=== PATIENT | female | born 1940 | race Caucasian/White ===

== ENCOUNTER 2020-04-03 17:22 | Emergency (ER) | payer MEDICARE, OTHER ==
[~2020-04-03] VITALS: Ht 162.6 cm; Wt 75.0 kg
[2020-04-03] MEDS ORDERED: iohexol 350MG/ML 100ml bottle IV ONE (17:37)
--- NOTE | 2020-04-03 17:37 | NUR ---
PT WENT TO CT SCAN WITH DAUGHTER TOMMY PEARSON .
[2020-04-03 17:58] LABS: BASOPHILS # (AUTO) 0.1 X10'3 (0-0.2); BASOPHILS % (AUTO) 0.8 % (0-1); EOSINOPHILS # (AUTO) 0.2 X10'3 (0-0.9); EOSINOPHILS % (AUTO) 2.3 % (0-6); HEMATOCRIT 42.8 % (35.0-45.0); HEMOGLOBIN 14.3 g/dl (12.0-16.0); LYMPHOCYTES # (AUTO) 3.7 X10'3 (1.1-4.8); LYMPHOCYTES % (AUTO) 35.7 % (21-51); MEAN CORPUSCULAR HEMOGLOBIN 32.2 PG (27.0-31.0); MEAN CORPUSCULAR HGB CONC 33.3 g/dL (33.0-36.5); MEAN CORPUSCULAR VOLUME 96.8 FL (78-98); MEAN PLATELET VOLUME 9.9 FL (7.4-10.4); MONOCYTES # (AUTO) 0.9 X10'3 (0-0.9); MONOCYTES % (AUTO) 8.4 % (2-12); NEUTROPHILS # (AUTO) 5.5 X10'3 (1.8-7.7); NEUTROPHILS % (AUTO) 52.8 % (42-75); PLATELET COUNT 222 X10'3 (140-440); RED BLOOD COUNT 4.42 X10'6 (4.20-5.60); RED CELL DISTRIBUTION WIDTH 13.4 % (11.5-14.5); WHITE BLOOD COUNT 10.3 X10'3 (4.5-11.0)
[2020-04-03 18:02] LABS: PARTIAL THROMBOPLASTIN TIME 24 SECONDS (22-32)
[2020-04-03 18:04] LABS: ALANINE AMINOTRANSFERASE 28 U/L (12-78); ALBUMIN 3.9 G/DL (3.4-5.0); ALBUMIN/GLOBULIN RATIO 1.1 (1.1-1.5); ALKALINE PHOSPHATASE 108 IU/L (46-116); ANION GAP 11 (8-16); ASPARTATE AMINO TRANSFERASE 15 U/L (10-37); BILIRUBIN,TOTAL 0.4 MG/DL (0.1-1.0); BLOOD UREA NITROGEN 22 MG/DL (7-18); BUN/CREATININE RATIO 31.9 (6.6-38.0); CALCIUM 9.7 MG/DL (8.5-10.1); CHLORIDE 105 MMOL/L (99-107); CREATININE 0.69 MG/DL (0.40-0.90); GLUCOSE 91 MG/DL (70-104); POTASSIUM 3.9 MMOL/L (3.5-5.1); SODIUM 140 MMOL/L (135-145); TOTAL CARBON DIOXIDE 24.1 MMOL/L (24-32); TOTAL PROTEIN 7.6 G/DL (6.4-8.2); eGFR 82 ML/MIN
[2020-04-03] MEDS ORDERED: normal saline 1000ml 1,000 ML IV ONE (18:10)
[2020-04-03 18:34] LABS: CLARITY,URINE CLEAR (Clear); COLOR,URINE YELLOW (Yellow); GLUCOSE, URINE NEGATIVE (Neg); KETONES,URINE NEGATIVE (Neg); LEUKOCYTE ESTERASE ,URINE SMALL (Neg); NITRITES, URINE NEGATIVE (Neg); OCCULT BLOOD,URINE NEGATIVE (Neg); PH,URINE 7.5 (4.8-8.0); PROTEIN,URINE NEGATIVE (Neg); UROBILINOGEN,URINE 0.2 E.U/dL (0.2-1.0)
[2020-04-03 18:40] LABS: UA COLLECTION TYPE CLN CATCH MIDSTREAM
[2020-04-03 18:41] LABS: BACTERIA,URINE 1+ /HPF (Neg); RBC,URINE NONE SEEN /HPF (0-2); SQUAMOUS EPITHELIAL CELL,UR MODERATE /LPF (FEW)
[2020-04-03 20:08] VITALS: BP 189/77
== END 2020-04-03 20:11 | disposition home or self-care (01) ==
LOC: ER 17:23
DX: G43.909 Migraine, unspecified, not intractable, without status migrainosus (principal); E03.9 Hypothyroidism, unspecified; Z88.2 Allergy status to sulfonamides
CPT/HCPCS: 36415; 70450; 70496; 70498; 71045; 80053; 81001; 85025; 85610; 85730; 86885; 86900; 86901; 87088; 93005; 96360; 99285; J7030; Q9967

== ENCOUNTER 2021-04-11 10:45 | Emergency (ER) | payer MEDICARE, OTHER ==
[~2021-04-11] VITALS: Ht 165.1 cm; Wt 72.7 kg
[~2021-04-11 10:45] MED LIST: ONDA4TAB12 PO
[2021-04-11] MEDS ORDERED: nitroGLYCERIN 0.4mg SUBLingual tab SL PRN (10:55)
[2021-04-11] MEDS ORDERED: aspirin 81mg tab.chew PO ONE (10:55)
[2021-04-11 11:26] LABS: BASOPHILS % (AUTO) 0.4 % (0-1); EOSINOPHILS # (AUTO) 0.1 X10'3 (0-0.9); EOSINOPHILS % (AUTO) 1.1 % (0-6); HEMATOCRIT 40.6 % (35.0-45.0); HEMOGLOBIN 13.9 g/dl (12.0-16.0); LYMPHOCYTES # (AUTO) 2.2 X10'3 (1.1-4.8); MEAN CORPUSCULAR HEMOGLOBIN 32.6 PG (27.0-31.0); MEAN CORPUSCULAR HGB CONC 34.2 g/dL (33.0-36.5); MEAN CORPUSCULAR VOLUME 95.4 FL (78-98); MEAN PLATELET VOLUME 8.9 FL (7.4-10.4); MONOCYTES # (AUTO) 0.6 X10'3 (0-0.9); MONOCYTES % (AUTO) 8.1 % (2-12); NEUTROPHILS # (AUTO) 4.9 X10'3 (1.8-7.7); NEUTROPHILS % (AUTO) 62.4 % (42-75); PLATELET COUNT 269 X10'3 (140-440); RED BLOOD COUNT 4.26 X10'6 (4.20-5.60); RED CELL DISTRIBUTION WIDTH 12.7 % (11.5-14.5); WHITE BLOOD COUNT 7.9 X10'3 (4.5-11.0)
[2021-04-11 11:43] LABS: ALANINE AMINOTRANSFERASE 25 U/L (12-78); ALBUMIN 3.3 G/DL (3.4-5.0); ALBUMIN/GLOBULIN RATIO 0.9 (1.1-1.5); ALKALINE PHOSPHATASE 81 IU/L (46-116); ANION GAP 13 (8-16); ASPARTATE AMINO TRANSFERASE 17 U/L (10-37); BILIRUBIN,TOTAL 0.6 MG/DL (0.1-1.0); BLOOD UREA NITROGEN 12 MG/DL (7-18); CALCIUM 8.7 MG/DL (8.5-10.1); CHLORIDE 105 MMOL/L (99-107); CREATININE 0.75 MG/DL (0.40-0.90); GLUCOSE 112 MG/DL (70-104); POTASSIUM 3.3 MMOL/L (3.5-5.1); SODIUM 141 MMOL/L (135-145); TOTAL CARBON DIOXIDE 23.5 MMOL/L (24-32); TOTAL PROTEIN 6.9 G/DL (6.4-8.2); eGFR 75 ML/MIN
[2021-04-11] MEDS ORDERED: ondansetron/PF 4mg/2ml inj IV ONE (12:50)
[2021-04-11 15:02] VITALS: BP 117/74
== END 2021-04-11 15:12 | disposition home or self-care (01) ==
LOC: ER 10:45
DX: R07.89 Other chest pain (principal); R11.2 Nausea with vomiting, unspecified; I48.91 Unspecified atrial fibrillation; E03.9 Hypothyroidism, unspecified; Z90.89 Acquired absence of other organs; Z88.2 Allergy status to sulfonamides; Z79.899 Other long term (current) drug therapy
CPT/HCPCS: 36415; 71045; 80053; 83880; 84484; 85025; 93005; 96374; 99285; J2405

== ENCOUNTER 2021-10-30 01:12 | Emergency (ER) | payer MEDICARE, OTHER ==
[~2021-10-30] VITALS: Ht 165.1 cm; Wt 75.5 kg
[2021-10-30 01:25] VITALS: BP 165/74
[2021-10-30] MEDS ORDERED: benzonatate 100mg capsule PO ONE ×2 (01:40→02:45)
[2021-10-30] MEDS ORDERED: BENZ-38 PO (02:50)
[2021-10-31] MEDS ORDERED: DEXA6TAB6 PO (12:18)
[2021-10-31] MEDS ORDERED: ALBU6.7H14 INH (12:18)
[2021-10-31] MEDS ORDERED: BUDE180A INH (12:18)
[2021-10-31] MEDS ORDERED: XYL25J TOP (12:18)
== END 2021-10-30 03:11 | disposition home or self-care (01) ==
LOC: ER 01:13
DX: J02.9 Acute pharyngitis, unspecified (principal); E03.9 Hypothyroidism, unspecified; Z88.0 Allergy status to penicillin; Z88.2 Allergy status to sulfonamides; Z98.890 Other specified postprocedural states
CPT/HCPCS: 87081; 87880; 99283

== ENCOUNTER 2021-10-31 09:20 | Emergency (ER) | payer MEDICARE, OTHER ==
[~2021-10-31] VITALS: Ht 162.6 cm; Wt 72.7 kg
[~2021-10-31 09:20] MED LIST changes: +BENZ-38 PO
[2021-10-31] MEDS ORDERED: dexamethasone sod phosphate 10mg/ml inj IV STA (09:42)
[2021-10-31] MEDS ORDERED: normal saline 1000ML IV soln IVB ONE (09:45)
[2021-10-31 10:03] LABS: BASOPHILS % (AUTO) 0.3 % (0-1); EOSINOPHILS % (AUTO) 0.1 % (0-6); HEMATOCRIT 45.6 % (35.0-45.0); HEMOGLOBIN 15.3 g/dl (12.0-16.0); LYMPHOCYTES # (AUTO) 1.9 X10'3 (1.1-4.8); LYMPHOCYTES % (AUTO) 18.5 % (21-51); MEAN CORPUSCULAR HEMOGLOBIN 32.5 PG (27.0-31.0); MEAN CORPUSCULAR HGB CONC 33.5 g/dL (33.0-36.5); MEAN CORPUSCULAR VOLUME 97.1 FL (78-98); MEAN PLATELET VOLUME 9.4 FL (7.4-10.4); MONOCYTES % (AUTO) 9.6 % (2-12); NEUTROPHILS # (AUTO) 7.2 X10'3 (1.8-7.7); NEUTROPHILS % (AUTO) 71.5 % (42-75); PLATELET COUNT 178 X10'3 (140-440); RED BLOOD COUNT 4.69 X10'6 (4.20-5.60); RED CELL DISTRIBUTION WIDTH 13.9 % (11.5-14.5); WHITE BLOOD COUNT 10.1 X10'3 (4.5-11.0)
[2021-10-31 10:18] LABS: ALANINE AMINOTRANSFERASE 26 U/L (12-78); ALBUMIN 3.4 G/DL (3.4-5.0); ALBUMIN/GLOBULIN RATIO 0.8 (1.1-1.5); ALKALINE PHOSPHATASE 93 IU/L (46-116); ANION GAP 12 (8-16); ASPARTATE AMINO TRANSFERASE 21 U/L (10-37); BILIRUBIN,TOTAL 0.5 MG/DL (0.1-1.0); BLOOD UREA NITROGEN 16 MG/DL (7-18); BUN/CREATININE RATIO 17.8 (6.6-38.0); CALCIUM 8.9 MG/DL (8.5-10.1); CHLORIDE 102 MMOL/L (99-107); GLUCOSE 168 MG/DL (70-104); POTASSIUM 3.3 MMOL/L (3.5-5.1); SODIUM 138 MMOL/L (135-145); TOTAL CARBON DIOXIDE 24.1 MMOL/L (24-32); TOTAL PROTEIN 7.5 G/DL (6.4-8.2); eGFR 60 ML/MIN
[2021-10-31] MEDS ORDERED: BEBTELOVIMAB 175 MG/2 ML VIAL IV ONE (10:40)
[2021-10-31] MEDS ORDERED: BUDE180A INH (12:18)
[2021-10-31] MEDS ORDERED: ALBU6.7H14 INH (12:18)
[2021-10-31] MEDS ORDERED: DEXA6TAB6 PO (12:18)
[2021-10-31] MEDS ORDERED: XYL25J TOP (12:18)
[2021-10-31 12:23] VITALS: BP 127/68
== END 2021-10-31 12:25 | disposition home or self-care (01) ==
LOC: ER 09:21
DX: U07.1 COVID-19 (principal); M54.9 Dorsalgia, unspecified; E03.9 Hypothyroidism, unspecified; I51.9 Heart disease, unspecified; Z88.0 Allergy status to penicillin; Z88.2 Allergy status to sulfonamides; Z79.899 Other long term (current) drug therapy; Z79.1 Long term (current) use of non-steroidal anti-inflammatories (NSAID)
CPT/HCPCS: 36415; 71045; 80053; 85025; 96374; 99284; J1100; J7030; M0222; Q0222

== ENCOUNTER 2021-11-28 08:36 | Emergency (ER) | payer MEDICARE, OTHER ==
[~2021-11-28] VITALS: Ht 162.6 cm; Wt 72.7 kg
[~2021-11-28 08:36] MED LIST changes: +ALBU6.7H14 INH; +BUDE180A INH; +DEXA6TAB6 PO; +XYL25J TOP
[2021-11-28 09:06] LABS: BASOPHILS % (AUTO) 0.5 % (0-1); EOSINOPHILS # (AUTO) 0.3 X10'3 (0-0.9); EOSINOPHILS % (AUTO) 3.2 % (0-6); HEMATOCRIT 42.1 % (35.0-45.0); HEMOGLOBIN 14.1 g/dl (12.0-16.0); LYMPHOCYTES # (AUTO) 2.3 X10'3 (1.1-4.8); LYMPHOCYTES % (AUTO) 28.3 % (21-51); MEAN CORPUSCULAR HEMOGLOBIN 32.4 PG (27.0-31.0); MEAN CORPUSCULAR HGB CONC 33.5 g/dL (33.0-36.5); MEAN CORPUSCULAR VOLUME 96.8 FL (78-98); MEAN PLATELET VOLUME 8.7 FL (7.4-10.4); MONOCYTES # (AUTO) 0.8 X10'3 (0-0.9); MONOCYTES % (AUTO) 9.9 % (2-12); NEUTROPHILS # (AUTO) 4.6 X10'3 (1.8-7.7); NEUTROPHILS % (AUTO) 58.1 % (42-75); PLATELET COUNT 245 X10'3 (140-440); RED BLOOD COUNT 4.35 X10'6 (4.20-5.60); RED CELL DISTRIBUTION WIDTH 13.1 % (11.5-14.5)
[2021-11-28 09:14] LABS: ALANINE AMINOTRANSFERASE 22 U/L (12-78); ALBUMIN 3.5 G/DL (3.4-5.0); ALKALINE PHOSPHATASE 113 IU/L (46-116); ANION GAP 10 (8-16); ASPARTATE AMINO TRANSFERASE 19 U/L (10-37); BILIRUBIN,TOTAL 0.6 MG/DL (0.1-1.0); BLOOD UREA NITROGEN 11 MG/DL (7-18); BUN/CREATININE RATIO 15.7 (6.6-38.0); CHLORIDE 106 MMOL/L (99-107); GLUCOSE 114 MG/DL (70-104); SODIUM 141 MMOL/L (135-145); TOTAL CARBON DIOXIDE 24.7 MMOL/L (24-32); TOTAL PROTEIN 6.9 G/DL (6.4-8.2); eGFR 81 ML/MIN
[2021-11-28] MEDS ORDERED: ondansetron/PF 4mg/2ml inj IV ONE (09:25)
[2021-11-28] MEDS ORDERED: LORazepam 2 mg/ml vial IV ONE (09:35)
[2021-11-28] MEDS ORDERED: bisoprolol 5mg tablet PO ONE (10:30)
[2021-11-28] MEDS ORDERED: atenolol 25mg tablet PO ONE ×2 (10:35→12:10)
[2021-11-28] MEDS ORDERED: LORazepam 1 MG tablet PO ONE (11:15)
[2021-11-28] MEDS ORDERED: BISO5TAB PO (11:27)
[2021-11-28 12:12] VITALS: BP 153/77
== END 2021-11-28 12:15 | disposition home or self-care (01) ==
LOC: ER 08:36
DX: R07.9 Chest pain, unspecified (principal); R00.2 Palpitations; E03.9 Hypothyroidism, unspecified; I51.9 Heart disease, unspecified; Z88.0 Allergy status to penicillin; Z88.2 Allergy status to sulfonamides; Z79.899 Other long term (current) drug therapy
CPT/HCPCS: 36415; 71045; 80053; 83880; 84484; 85025; 93005; 96374; 99285; J2405

== ENCOUNTER 2022-04-08 11:20 | Emergency (ER) | payer MEDICARE, OTHER ==
[~2022-04-08] VITALS: Ht 165.1 cm; Wt 178.8 kg
[~2022-04-08 11:20] MED LIST changes: -BENZ-38 PO; +BISO5TAB PO
[2022-04-08 11:38] VITALS: BP 175/85
== END 2022-04-08 13:21 | disposition home or self-care (01) ==
LOC: ER 11:21
DX: S01.01XA Laceration without foreign body of scalp, initial encounter (principal); E03.9 Hypothyroidism, unspecified; I48.91 Unspecified atrial fibrillation; Z90.49 Acquired absence of other specified parts of digestive tract; Z88.0 Allergy status to penicillin; Z88.2 Allergy status to sulfonamides; Z79.899 Other long term (current) drug therapy; W18.39XA Other fall on same level, initial encounter; Y93.89 Activity, other specified; Y92.89 Other specified places as the place of occurrence of the external cause; Y99.8 Other external cause status
CPT/HCPCS: 12001; 70450; 99284; A6449

== ENCOUNTER 2024-04-27 11:39 | Emergency (ER) | payer MEDICARE, OTHER ==
[~2024-04-27] VITALS: Ht 160 cm; Wt 80.0 kg
[~2024-04-27 11:39] MED LIST changes: -BUDE180A INH; +BUDE180A5 INH; +ONDA-243 PO; -ONDA4TAB12 PO
[2024-04-27 12:45] LABS: BASOPHILS # (AUTO) 0.1 X10'3 (0-0.2); BASOPHILS % (AUTO) 0.5 % (0-1); EOSINOPHILS # (AUTO) 0.1 X10'3 (0-0.9); EOSINOPHILS % (AUTO) 0.5 % (0-6); HEMATOCRIT 41.6 % (35.0-45.0); HEMOGLOBIN 14.1 g/dl (12.0-16.0); LYMPHOCYTES # (AUTO) 2.6 X10'3 (1.1-4.8); LYMPHOCYTES % (AUTO) 17.6 % (21-51); MEAN CORPUSCULAR HEMOGLOBIN 32.8 PG (27.0-31.0); MEAN CORPUSCULAR HGB CONC 33.8 g/dL (33.0-36.5); MEAN CORPUSCULAR VOLUME 97.3 FL (78-98); MEAN PLATELET VOLUME 9.5 FL (7.4-10.4); MONOCYTES # (AUTO) 1.2 X10'3 (0-0.9); MONOCYTES % (AUTO) 8.2 % (2-12); NEUTROPHILS # (AUTO) 10.9 X10'3 (1.8-7.7); NEUTROPHILS % (AUTO) 73.2 % (42-75); PLATELET COUNT 248 X10'3 (140-440); RED BLOOD COUNT 4.28 X10'6 (4.20-5.60); RED CELL DISTRIBUTION WIDTH 12.9 % (11.5-14.5); WHITE BLOOD COUNT 14.9 X10'3 (4.5-11.0)
[2024-04-27 13:47] LABS: ALANINE AMINOTRANSFERASE 29 U/L (12-78); ALBUMIN 3.4 G/DL (3.4-5.0); ALBUMIN/GLOBULIN RATIO 0.9 (1.1-1.5); ALKALINE PHOSPHATASE 115 IU/L (46-116); ANION GAP 8 (8-16); ASPARTATE AMINO TRANSFERASE 14 U/L (10-37); BILIRUBIN,TOTAL 0.3 MG/DL (0.1-1.0); BLOOD UREA NITROGEN 17 MG/DL (7-18); BUN/CREATININE RATIO 28.8 (10.0-20.0); CALCIUM 9.3 MG/DL (8.5-10.1); CHLORIDE 106 MMOL/L (99-107); CREATININE 0.59 MG/DL (0.40-0.90); GLUCOSE 109 MG/DL (70-104); POTASSIUM 4.1 MMOL/L (3.5-5.1); SODIUM 139 MMOL/L (135-145); TOTAL CARBON DIOXIDE 25.5 MMOL/L (24-32); TOTAL PROTEIN 7.3 G/DL (6.4-8.2); eCRCL 62 ML/MIN; eGFR > 90 ML/MIN
[2024-04-27] MEDS: famotidine 20mg tablet PO ONE (13:48)
[2024-04-27] MEDS: ringers solution, lacted 1,000 ML IV ONE (13:48)
[2024-04-27] MEDS: acetaminophen 325mg tablet PO ONE (13:48)
[2024-04-27] MEDS: mag hydrox/Alum hydrox/simeth 30ml oral suspension PO ONE (13:49)
[2024-04-27] MEDS: aspirin 81mg tab.chew PO ONE (13:49)
[2024-04-27] MEDS: LIDOcaine 2% Viscous 15ml cup MM ONE (13:49)
[2024-04-27 13:56] LABS: PRO BRAIN NATRIURETIC PEPTIDE 250 PG/ML (0-450)
[2024-04-27 17:11] VITALS: BP 164/65; PULSE 60; RESP 16; TEMP 97.8; O2SAT 98
== END 2024-04-27 17:27 | disposition home or self-care (01) ==
LOC: ER 11:40
DX: R07.89 Other chest pain (principal); I10 Essential (primary) hypertension; E03.9 Hypothyroidism, unspecified; I48.91 Unspecified atrial fibrillation; Z88.0 Allergy status to penicillin; Z88.2 Allergy status to sulfonamides; Z79.01 Long term (current) use of anticoagulants; Z90.49 Acquired absence of other specified parts of digestive tract
CPT/HCPCS: 36415; 71045; 80053; 83880; 84484; 85025; 93005; 96360; 99285; J7120